=== PATIENT | female | born 1980 | race Caucasian/White ===

== ENCOUNTER 2017-12-17 20:51 | Observation (INO) | payer OTHER ==
--- NOTE | 2017-12-17 21:03 | EDM.PDOC ---
ED HPI GENERAL MEDICAL PROBLEM - General Chief Complaint: General Stated Complaint: Took too much flexeril Time Seen by Provider: 12/17/17 20:52 Source of Information: Reports: Patient, Family, RN, RN Notes Reviewed History Limitations: Reports: No Limitations - History of Present Illness INITIAL COMMENTS - FREE TEXT/NARRATIVE: Patient is brought to the ED at [facility] for an intentional overdose of Cyclobenzaprine. Patient states "I had a bad day" and took 3 tablets of 10 mg flexeril. She has a history of cutting in the past. She is currently taking Celexa 40 mg daily. She has PRN Ativan at home. She has not taken any of this. She does feel safe at home. She states she found out tonight her has been having an affair. They did contact the Poison Control Center who recommended she be seen in the ER due to slow respirations. Onset: Today Onset Date: 12/17/17 - Related Data Allergies Allergy/AdvReac Type Severity Reaction Status Date / Time No Known Allergies Allergy Verified 12/17/17 21:12 Home Meds: Home Meds Citalopram [Citalopram HBr] 20 mg PO DAILY 12/17/17 [History] Levothyroxine [Sythroid] 100 mcg PO DAILY 12/17/17 [History] Lisinopril 20 mg PO DAILY 12/17/17 [History] ED ROS GENERAL - Review of Systems Review Of Systems: See Below Constitutional: Denies: Fever, Chills, Weakness Respiratory: Denies: Shortness of Breath, Cough Cardiovascular: Denies: Chest Pain, Palpitations GI/Abdominal: Denies: Abdominal Pain, Nausea, Vomiting Skin: Reports: No Symptoms Neurological: Reports: Other (feels sleepy) ED EXAM, GENERAL - Physical Exam Exam: See Below Exam Limited By: No Limitations General Appearance: Alert, No Apparent Distress, Other (not really all that overly lethargic, is alert, but tearful) Respiratory/Chest: No Respiratory Distress, Lungs Clear, Normal Breath Sounds Cardiovascular: Normal Peripheral Pulses, Regular Rate, Rhythm Peripheral Pulses: 2+: Radial (L), Radial (R) GI/Abdominal: Normal Bowel Sounds, Soft, Non-Tender Neurological: Alert, Oriented Psychiatric: Depressed Mood, Tearful Skin Exam: Warm, Dry, Intact, Normal Color EKG INTERPRETATION EKG Date: 12/17/17 Time: 21:58 Rhythm: NSR Rate (Beats/Min): 64 [place]: Normal P-Wave: Present QRS: Normal ST-T: Normal QT: Normal MN/PQ Interval: 0.19 Comparison: NA - No Prior EKG EKG Interpretation Comments: 1. Sinus Rhythm 2. Moderate T-wave abnormality, consider inferior ischemia Course - Vital Signs Last Recorded V/S: Last Vital Signs Temp 36.5 C 12/17/17 21:10 Pulse 80 12/17/17 21:10 Resp 20 12/17/17 21:10 BP 135/85 12/17/17 21:10 Pulse Ox 94 L 12/17/17 21:10 - Orders/Labs/Meds Orders: Active Orders 24 hr Category Date Time Status EKG 12 Lead [EKG Documentation Completion] [RC] STAT Care 12/17/17 21:13 Active DRUG SCREEN, URINE [URCHEM] Stat Lab 12/17/17 21:40 Ordered SALICYLATE [REF] Stat Lab 12/17/17 21:34 Received UA W/MICROSCOPIC [URIN] Stat Lab 12/17/17 21:40 Ordered Labs: Laboratory Tests 12/17/17 12/17/17 12/17/17 Range/Units 21:34 21:34 21:40 WBC 7.8 (4.0-10.0) x10^3/uL RBC 4.43 (4.00-5.50) x10^6/uL Hgb 13.4 (12.0-16.0) g/dL Hct 39.0 (33.0-47.0) % MCV 88.0 (78.0-93.0) fL MCH 30.2 (26.0-32.0) pg MCHC 34.4 (32.0-36.0) g/dL RDW Coeff of Raz 14.7 (10.0-15.0) % Plt Count 226 (130-400) x10^3/uL Neut % (Auto) 68.4 (50.0-80.0) % Lymph % (Auto) 23.8 L (25.0-50.0) % [place] % (Auto) 6.7 (2.0-11.0) % Eos % (Auto) 0.8 (0.0-4.0) % Baso % (Auto) 0.3 (0.2-1.2) % Sodium 129 L* (136-145) mmol/L Potassium 3.2 L (3.5-5.1) mmol/L Chloride 94 L (98-107) mmol/L Carbon Dioxide 22 (21-32) mmol/L Anion Gap 16.2 (10-20) mmol/L BUN 5 L (7-18) mg/dL Creatinine 0.7 (0.55-1.02) mg/dL Est Cr Clr Drug Dosing TNP Estimated GFR (MDRD) > 60 Glucose 94 (74-106) mg/dL Calcium 8.2 L (8.5-10.1) mg/dL Corrected Calcium 8.68 (8.5-10.1) mg/dL Total Bilirubin 0.5 (0.2-1.0) mg/dL AST 24 (15-37) U/L ALT 32 (14-59) U/L Alkaline Phosphatase 79 (46-116) U/L Total Protein 7.6 (6.4-8.2) g/dL Albumin 3.4 (3.4-5.0) g/dL Globulin 4.2 Albumin/Globulin Ratio 0.81 Urine Color Yellow (YELLOW) Urine Appearance Clear (CLEAR) Urine pH 6.0 (5.0-8.0) Ur Specific [place] <=1.005 Urine Protein Negative (NEGATIVE) mg/dL Urine Glucose (UA) Negative (NEGATIVE) mg/dL Urine Ketones Negative (NEGATIVE) mg/dL Urine Occult Blood Small H (NEGATIVE) Urine Nitrite Negative (NEGATIVE) Urine Bilirubin Negative (NEGATIVE) Urine Urobilinogen 0.2 (0.2) EU/dL Ur Leukocyte Esterase Negative (NEGATIVE) Urine RBC Not seen (NOT SEEN) /HPF Urine WBC 0-5 (NOT SEEN) /HPF Urine WBC Clumps Rare Urine Bacteria Rare (NEGATIVE) /HPF Urine Mucus Rare H (NEGATIVE) /LPF Urine Opiates Screen (NEGATIVE) Ur Buprenorphine Scrn (NEGATIVE) Ur Oxycodone Screen (NEGATIVE) Urine Methadone Screen (NEGATIVE) Acetaminophen 0 L (10-30) ug/ml Ur Barbiturates Screen (NEGATIVE) Ur Tricyclics Screen (NEGATIVE) Ur Amphetamine Screen (NEGATIVE) U Methamphetamines Scrn (NEGATIVE) Urine MDMA Screen (NEGATIVE) U Benzodiazepines Scrn (NEGATIVE) U Cocaine Metab Screen (NEGATIVE) U Marijuana (THC) Screen (NEGATIVE) 08/22/18 Range/Units 21:40 WBC (4.0-10.0) x10^3/uL RBC (4.00-5.50) x10^6/uL Hgb (12.0-16.0) g/dL Hct (33.0-47.0) % MCV (78.0-93.0) fL MCH (26.0-32.0) pg MCHC (32.0-36.0) g/dL RDW Coeff of Raz (10.0-15.0) % Plt Count (130-400) x10^3/uL Neut % (Auto) (50.0-80.0) % Lymph % (Auto) (25.0-50.0) % [place] % (Auto) (2.0-11.0) % Eos % (Auto) (0.0-4.0) % Baso % (Auto) (0.2-1.2) % Sodium (136-145) mmol/L Potassium (3.5-5.1) mmol/L Chloride (98-107) mmol/L Carbon Dioxide (21-32) mmol/L Anion Gap (10-20) mmol/L BUN (7-18) mg/dL Creatinine (0.55-1.02) mg/dL Est Cr Clr Drug Dosing Estimated GFR (MDRD) Glucose (74-106) mg/dL Calcium (8.5-10.1) mg/dL Corrected Calcium (8.5-10.1) mg/dL Total Bilirubin (0.2-1.0) mg/dL AST (15-37) U/L ALT (14-59) U/L Alkaline Phosphatase (46-116) U/L Total Protein (6.4-8.2) g/dL Albumin (3.4-5.0) g/dL Globulin Albumin/Globulin Ratio Urine Color (YELLOW) Urine Appearance (CLEAR) Urine pH (5.0-8.0) Ur Specific [place] Urine Protein (NEGATIVE) mg/dL Urine Glucose (UA) (NEGATIVE) mg/dL Urine Ketones (NEGATIVE) mg/dL Urine Occult Blood (NEGATIVE) Urine Nitrite (NEGATIVE) Urine Bilirubin (NEGATIVE) Urine Urobilinogen (0.2) EU/dL Ur Leukocyte Esterase (NEGATIVE) Urine RBC (NOT SEEN) /HPF Urine WBC (NOT SEEN) /HPF Urine WBC Clumps Urine Bacteria (NEGATIVE) /HPF Urine Mucus (NEGATIVE) /LPF Urine Opiates Screen Negative (NEGATIVE) Ur Buprenorphine Scrn Negative (NEGATIVE) Ur Oxycodone Screen Negative (NEGATIVE) Urine Methadone Screen Negative (NEGATIVE) Acetaminophen (10-30) ug/ml Ur Barbiturates Screen Negative (NEGATIVE) Ur Tricyclics Screen Negative (NEGATIVE) Ur Amphetamine Screen Negative (NEGATIVE) U Methamphetamines Scrn Negative (NEGATIVE) Urine MDMA Screen Negative (NEGATIVE) U Benzodiazepines Scrn Negative (NEGATIVE) U Cocaine Metab Screen Negative (NEGATIVE) U Marijuana (THC) Screen Negative (NEGATIVE) Departure - Departure Time of Disposition: 22:20 Disposition: Refer to Observation Condition: Good Clinical Impression: Hyponatremia, Mild cyclobenzaprine use disorder, Dehydration - Discharge Information *PRESCRIPTION DRUG MONITORING PROGRAM REVIEWED*: Not Applicable *COPY OF PRESCRIPTION DRUG MONITORING REPORT IN PATIENT HENRI: Not Applicable ED Communication - ED Communication Date/Time Date: 12/17/17 Time Called: :22 - Discussed Case With (1) Discussed Case With (1): Other (Poison Control Center) - Conversation Summary Summary Comment: Poison control center contacted. Spoke with Kim. No recommendations. Peak 4-6 hours. Just monitor. No additional testing recommended - Problem List Review Problem List Initiated/Reviewed/Updated: Yes - My Orders Last 24 Hours: My Active Orders 12/17/17 21:13 EKG 12 Lead [EKG Documentation Completion] [RC] STAT 12/17/17 21:34 SALICYLATE [REF] Stat 12/17/17 21:40 DRUG SCREEN, URINE [URCHEM] Stat UA W/MICROSCOPIC [URIN] Stat - Assessment/Plan Admission H&P: Please use this note as an admission H&P Last 24 Hours: My Active Orders 12/17/17 21:13 EKG 12 Lead [EKG Documentation Completion] [RC] STAT 12/17/17 21:34 SALICYLATE [REF] Stat 12/17/17 21:40 DRUG SCREEN, URINE [URCHEM] Stat UA W/MICROSCOPIC [URIN] Stat Assessment:: Flexeril overdose, intentional Grief reaction Hyponatremia Plan: patient will be admitted for IVF rehydration and monitoring. Patient agrees with admission. Will discharge once Sodium level is normal. Patient will be admitted for less than 24 hours. Will have CM see patient for any APOC or counseling needs.
[2017-12-17 22:01] LABS: CHLORIDE,CL 94 mmol/L (98-107)
[2017-12-17 22:05] LABS: ANION GAP 16.2 mmol/L (10-20); SODIUM,NA 129 mmol/L (136-145)
[2017-12-17 22:14] LABS: ACETAMINOPHEN 0 ug/ml (10-30)
[2017-12-17] MEDS ORDERED: Ondansetron 4 MG Tab.DIS PO PRN (23:18)
[2017-12-17] MEDS ORDERED: Acetaminophen 325 MG Tab PO PRN (23:18)
[2017-12-17] MEDS ORDERED: Sodium Chloride 0.9% 10 ML Syringe FLUSH PRN (23:18)
[2017-12-17] MEDS ORDERED: Sodium Chloride 0.9% 1,000 ML IV ONE ×2 (23:20→23:21)
[2017-12-17] MEDS ORDERED: LORazepam 0.5 MG Tab PO PRN (23:27)
[2017-12-17] MEDS ORDERED: atorvaSTATin 10 MG Tab PO SCH (23:27)
[2017-12-18] MEDS ORDERED: Sodium Chloride 0.9% 10 ML Syringe FLUSH PRN (00:22)
[2017-12-18 07:19] LABS: CHLORIDE,CL 105 mmol/L (98-107); SODIUM,NA 139 mmol/L (136-145)
[2017-12-18 07:21] LABS: ANION GAP 13.9 mmol/L (10-20)
[2017-12-18] MEDS ORDERED: Lisinopril 20 MG Tab PO SCH (08:00)
[2017-12-18] MEDS ORDERED: Citalopram 20 MG Tab PO SCH (08:00)
[2017-12-18] MEDS ORDERED: Levothyroxine 100 MCG Tab PO SCH (08:00)
[2017-12-18] MEDS: Hydrochlorothiazide 12.5 MG Cap PO SCH ×2 (09:07→12:09)
--- NOTE | 2017-12-18 10:24 | PCM.PN ---
- General Info Date of Service: 12/18/17 Admission Dx/Problem (Free Text): Pt. was admitted observation following a cyclobenzaprine overdose. Overall, she states that she is feeling fine. Denies any somnolence. No chest pain or shortness of breath. No nausea, vomiting, or abdominal discomfort. She has not seen health social work professor yet this AM. She denies any suicidal or homicidal ideation, and states that she is not a threat to herself or others. She does take Lexapro which is prescribed by her PCP which she feels is not helping much with her depression. Her depression, again, was exacerbated by marital problems. Functional Status: Reports: Pain Controlled - Review of Systems General: Reports: No Symptoms HEENT: Reports: No Symptoms, Glasses Pulmonary: Reports: No Symptoms Cardiovascular: Reports: No Symptoms Gastrointestinal: Reports: No Symptoms Genitourinary: Reports: No Symptoms Musculoskeletal: Reports: No Symptoms Skin: Reports: No Symptoms Neurological: Reports: No Symptoms Psychiatric: Reports: Other (see HPI) - Patient Data Vitals - Most Recent: Last Vital Signs Temp 37.1 C 12/18/17 06:00 Pulse 93 12/18/17 06:00 Resp 19 12/18/17 06:00 BP 138/84 12/18/17 06:00 Pulse Ox 96 12/18/17 06:00 Weight - Most Recent: 121.336 kg I&O - Last 24 Hours: Intake & Output 12/17/17 12/18/17 12/18/17 22:59 06:59 14:59 Intake Total 720 2935 0 Output Total 1800 Balance 720 1135 0 Lab Results Last 24 Hours: Laboratory Results - last 24 hr 12/17/17 12/17/17 12/17/17 Range/Units 21:34 21:34 21:40 WBC 7.8 (4.0-10.0) x10^3/uL RBC 4.43 (4.00-5.50) x10^6/uL Hgb 13.4 (12.0-16.0) g/dL Hct 39.0 (33.0-47.0) % MCV 88.0 (78.0-93.0) fL MCH 30.2 (26.0-32.0) pg MCHC 34.4 (32.0-36.0) g/dL RDW Coeff of Raz 14.7 (10.0-15.0) % Plt Count 226 (130-400) x10^3/uL Neut % (Auto) 68.4 (50.0-80.0) % Lymph % (Auto) 23.8 L (25.0-50.0) % [place] % (Auto) 6.7 (2.0-11.0) % Eos % (Auto) 0.8 (0.0-4.0) % Baso % (Auto) 0.3 (0.2-1.2) % Sodium 129 L* (136-145) mmol/L Potassium 3.2 L (3.5-5.1) mmol/L Chloride 94 L (98-107) mmol/L Carbon Dioxide 22 (21-32) mmol/L Anion Gap 16.2 (10-20) mmol/L BUN 5 L (7-18) mg/dL Creatinine 0.7 (0.55-1.02) mg/dL Est Cr Clr Drug Dosing TNP Estimated GFR (MDRD) > 60 Glucose 94 (74-106) mg/dL Calcium 8.2 L (8.5-10.1) mg/dL Corrected Calcium 8.68 (8.5-10.1) mg/dL Total Bilirubin 0.5 (0.2-1.0) mg/dL AST 24 (15-37) U/L ALT 32 (14-59) U/L Alkaline Phosphatase 79 (46-116) U/L Total Protein 7.6 (6.4-8.2) g/dL Albumin 3.4 (3.4-5.0) g/dL Globulin 4.2 Albumin/Globulin Ratio 0.81 Urine Color Yellow (YELLOW) Urine Appearance Clear (CLEAR) Urine pH 6.0 (5.0-8.0) Ur Specific [place] <=1.005 Urine Protein Negative (NEGATIVE) mg/dL Urine Glucose (UA) Negative (NEGATIVE) mg/dL Urine Ketones Negative (NEGATIVE) mg/dL Urine Occult Blood Small H (NEGATIVE) Urine Nitrite Negative (NEGATIVE) Urine Bilirubin Negative (NEGATIVE) Urine Urobilinogen 0.2 (0.2) EU/dL Ur Leukocyte Esterase Negative (NEGATIVE) Urine RBC Not seen (NOT SEEN) /HPF Urine WBC 0-5 (NOT SEEN) /HPF Urine WBC Clumps Rare Urine Bacteria Rare (NEGATIVE) /HPF Urine Mucus Rare H (NEGATIVE) /LPF Urine Opiates Screen (NEGATIVE) Ur Buprenorphine Scrn (NEGATIVE) Ur Oxycodone Screen (NEGATIVE) Urine Methadone Screen (NEGATIVE) Acetaminophen 0 L (10-30) ug/ml Ur Barbiturates Screen (NEGATIVE) Ur Tricyclics Screen (NEGATIVE) Ur Amphetamine Screen (NEGATIVE) U Methamphetamines Scrn (NEGATIVE) Urine MDMA Screen (NEGATIVE) U Benzodiazepines Scrn (NEGATIVE) U Cocaine Metab Screen (NEGATIVE) U Marijuana (THC) Screen (NEGATIVE) 12/17/17 12/18/17 Range/Units 21:40 06:43 WBC (4.0-10.0) x10^3/uL RBC (4.00-5.50) x10^6/uL Hgb (12.0-16.0) g/dL Hct (33.0-47.0) % MCV (78.0-93.0) fL MCH (26.0-32.0) pg MCHC (32.0-36.0) g/dL RDW Coeff of Raz (10.0-15.0) % Plt Count (130-400) x10^3/uL Neut % (Auto) (50.0-80.0) % Lymph % (Auto) (25.0-50.0) % [place] % (Auto) (2.0-11.0) % Eos % (Auto) (0.0-4.0) % Baso % (Auto) (0.2-1.2) % Sodium 139 D (136-145) mmol/L Potassium 3.9 (3.5-5.1) mmol/L Chloride 105 (98-107) mmol/L Carbon Dioxide 24 (21-32) mmol/L Anion Gap 13.9 (10-20) mmol/L BUN 6 L (7-18) mg/dL Creatinine 0.9 (0.55-1.02) mg/dL Est Cr Clr Drug Dosing 80.90 Estimated GFR (MDRD) > 60 Glucose 92 (74-106) mg/dL Calcium 8.4 L (8.5-10.1) mg/dL Corrected Calcium (8.5-10.1) mg/dL Total Bilirubin (0.2-1.0) mg/dL AST (15-37) U/L ALT (14-59) U/L Alkaline Phosphatase (46-116) U/L Total Protein (6.4-8.2) g/dL Albumin (3.4-5.0) g/dL Globulin Albumin/Globulin Ratio Urine Color (YELLOW) Urine Appearance (CLEAR) Urine pH (5.0-8.0) Ur Specific [place] Urine Protein (NEGATIVE) mg/dL Urine Glucose (UA) (NEGATIVE) mg/dL Urine Ketones (NEGATIVE) mg/dL Urine Occult Blood (NEGATIVE) Urine Nitrite (NEGATIVE) Urine Bilirubin (NEGATIVE) Urine Urobilinogen (0.2) EU/dL Ur Leukocyte Esterase (NEGATIVE) Urine RBC (NOT SEEN) /HPF Urine WBC (NOT SEEN) /HPF Urine WBC Clumps Urine Bacteria (NEGATIVE) /HPF Urine Mucus (NEGATIVE) /LPF Urine Opiates Screen Negative (NEGATIVE) Ur Buprenorphine Scrn Negative (NEGATIVE) Ur Oxycodone Screen Negative (NEGATIVE) Urine Methadone Screen Negative (NEGATIVE) Acetaminophen (10-30) ug/ml Ur Barbiturates Screen Negative (NEGATIVE) Ur Tricyclics Screen Negative (NEGATIVE) Ur Amphetamine Screen Negative (NEGATIVE) U Methamphetamines Scrn Negative (NEGATIVE) Urine MDMA Screen Negative (NEGATIVE) U Benzodiazepines Scrn Negative (NEGATIVE) U Cocaine Metab Screen Negative (NEGATIVE) U Marijuana (THC) Screen Negative (NEGATIVE) Med Orders - Current: Current Medications Acetaminophen (Tylenol) 650 mg PO Q4H PRN PRN Reason: Pain (Mild 1-3)/fever Atorvastatin Calcium (Lipitor) 10 mg PO BEDTIME [facility] Last Admin: 12/18/17 00:46 Dose: Not Given Citalopram Hydrobromide (Celexa) 40 mg PO DAILY [facility] Last Admin: 12/18/17 08:25 Dose: 40 mg Hydrochlorothiazide (Hydrochlorothiazide) 12.5 mg PO DAILY [facility] Last Admin: 12/18/17 09:07 Dose: Not Given Levothyroxine Sodium (Synthroid) 100 mcg PO DAILY [facility] Last Admin: 12/18/17 08:25 Dose: 100 mcg Lisinopril (Prinivil) 20 mg PO DAILY [facility] Last Admin: 12/18/17 08:26 Dose: 20 mg Lorazepam (Ativan) 0.5 mg PO DAILY PRN PRN Reason: Anxiety Ondansetron HCl (Zofran Odt) 4 mg PO Q6H PRN PRN Reason: nausea, able to take PO Sodium Chloride (Saline Flush) 10 ml FLUSH ASDIRECTED PRN PRN Reason: Keep Vein Open Sodium Chloride (Saline Flush) 10 ml FLUSH ASDIRECTED PRN PRN Reason: Keep Vein Open Discontinued Medications Sodium Chloride (Normal Saline) 1,000 mls @ 999 mls/hr IV ONETIME ONE Stop: 12/18/17 00:20 Last Admin: 12/17/17 23:22 Dose: 999 mls/hr Sodium Chloride (Normal Saline) 1,000 mls @ 999 mls/hr IV ONETIME ONE Stop: 12/18/17 00:21 Last Admin: 12/18/17 00:44 Dose: 999 mls/hr - Exam General: Alert, Oriented Lungs: Clear to Auscultation, Normal Respiratory Effort Cardiovascular: Regular Rate, Regular Rhythm GI/Abdominal Exam: Soft, Non-Tender Back Exam: Normal Inspection, Full Range of Motion Extremities: Normal Inspection, Normal Range of Motion Skin: Warm, Dry, Intact Neurological: No New Focal Deficit Psy/Mental Status: Alert, Normal Affect, Normal Mood - Problem List Review Problem List Initiated/Reviewed/Updated: Yes - Plan Plan:: She will be discharged later today. Again, we need to set her up to see a mental health professional locally, as well as her PCP to discuss her antidepressant medication. Anticipate discharge later today.
--- NOTE | 2017-12-24 05:45 | PCM.DCSUM1 ---
Discharge Summary - Hospital Course HPI Initial Comments: Pt. did well overnight. Denies any lightheadedness. No chest pain or shortness of breath. Denies any acute suicidal ideation. - Discharge Data Discharge Date: 12/18/17 Discharge Disposition: Home, Self-Care 01 Condition: Good - Patient Summary/Data Consults: Consultations 12/17/17 23:18 Consult to Case Management [CONS] Routine - Discharge Plan *PRESCRIPTION DRUG MONITORING PROGRAM REVIEWED*: Not Applicable *COPY OF PRESCRIPTION DRUG MONITORING REPORT IN PATIENT HENRI: Not Applicable Home Medications: Home Meds Citalopram [Citalopram HBr] 40 mg PO DAILY 12/17/17 [History] LORazepam 0.5 mg PO DAILY PRN 12/17/17 [History] Levothyroxine [Synthroid] 100 mcg PO DAILY 12/17/17 [History] Lisinopril/Hydrochlorothiazide [Lisinopril-Hctz 20-12.5 mg Tab] 1 each PO DAILY 12/17/17 [History] atorvaSTATin [Lipitor] 10 mg PO BEDTIME 12/17/17 [History] - General Info Functional Status: Reports: Pain Controlled - Review of Systems General: Reports: No Symptoms HEENT: Reports: No Symptoms Pulmonary: Reports: No Symptoms Cardiovascular: Reports: No Symptoms Gastrointestinal: Reports: No Symptoms Genitourinary: Reports: No Symptoms Musculoskeletal: Reports: No Symptoms Skin: Reports: No Symptoms Neurological: Reports: No Symptoms Psychiatric: Reports: Depression - Patient Data Vitals - Most Recent: Last Vital Signs Temp 36.2 C 12/18/17 10:00 Pulse 74 12/18/17 10:00 Resp 19 12/18/17 06:00 BP 134/78 12/18/17 10:00 Pulse Ox 97 12/18/17 10:00 Weight - Most Recent: 121.336 kg Med Orders - Current: Current Medications Discontinued Medications Acetaminophen (Tylenol) 650 mg PO Q4H PRN PRN Reason: Pain (Mild 1-3)/fever Atorvastatin Calcium (Lipitor) 10 mg PO BEDTIME [facility] Last Admin: 12/18/17 00:46 Dose: Not Given Citalopram Hydrobromide (Celexa) 40 mg PO DAILY [facility] Last Admin: 12/18/17 08:25 Dose: 40 mg Hydrochlorothiazide (Hydrochlorothiazide) 12.5 mg PO DAILY [facility] Last Admin: 12/18/17 12:09 Dose: 12.5 mg Sodium Chloride (Normal Saline) 1,000 mls @ 999 mls/hr IV ONETIME ONE Stop: 12/18/17 00:20 Last Admin: 12/17/17 23:22 Dose: 999 mls/hr Sodium Chloride (Normal Saline) 1,000 mls @ 999 mls/hr IV ONETIME ONE Stop: 12/18/17 00:21 Last Admin: 12/18/17 00:44 Dose: 999 mls/hr Levothyroxine Sodium (Synthroid) 100 mcg PO DAILY [facility] Last Admin: 12/18/17 08:25 Dose: 100 mcg Lisinopril (Prinivil) 20 mg PO DAILY [facility] Last Admin: 12/18/17 08:26 Dose: 20 mg Lorazepam (Ativan) 0.5 mg PO DAILY PRN PRN Reason: Anxiety Ondansetron HCl (Zofran Odt) 4 mg PO Q6H PRN PRN Reason: nausea, able to take PO Sodium Chloride (Saline Flush) 10 ml FLUSH ASDIRECTED PRN PRN Reason: Keep Vein Open Sodium Chloride (Saline Flush) 10 ml FLUSH ASDIRECTED PRN PRN Reason: Keep Vein Open - Exam General: Reports: Alert, Oriented HEENT: Reports: Pupils Equal, Pupils Reactive, EOMI, Mucous Membr. Moist/[place] Neck: Reports: Supple Lungs: Reports: Clear to Auscultation, Normal Respiratory Effort Cardiovascular: Reports: Regular Rate, Regular Rhythm GI/Abdominal Exam: Normal Bowel Sounds, Soft, Non-Tender, No Organomegaly, No Distention, No Abnormal Bruit, No Mass, Pelvis Stable Skin: Reports: Warm, Dry, Intact Neurological: Reports: No New Focal Deficit Psy/Mental Status: Reports: Alert, Normal Affect, Normal Mood
== END 2017-12-18 12:15 | disposition home or self-care (01) ==
LOC: VM.ED 20:51 → VM.MS 22:21
PROVIDERS: ADMIT Nurse Practitioner Family; ATTEND Nurse Practitioner Family
DX: T48.1X2A Poisoning by skeletal muscle relaxants [neuromuscular blocking agents], intentional self-harm, initial encounter (principal); E87.1 Hypo-osmolality and hyponatremia; E86.0 Dehydration
CPT/HCPCS: 36415; 80048; 80053; 80305; 81001; 85025; 93005; 96360; 96361; 99285; A9270; G0378; G0480; J7030

== ENCOUNTER 2018-01-12 10:06 | Emergency (ER) | payer OTHER ==
[2018-01-12] MEDS ORDERED: Sodium Chloride 0.9% 10 ML Syringe FLUSH PRN (10:13)
[2018-01-12] MEDS ORDERED: LORazepam 2 MG/ML SDV IVPUSH ONE (10:14)
[2018-01-12] MEDS ORDERED: Sodium Chloride 0.9% 1,000 ML IV ONE (10:14)
[2018-01-12] MEDS ORDERED: Ondansetron 4 MG/2 ML SDV IVPUSH ONE (10:16)
--- NOTE | 2018-01-12 10:16 | EDM.PDOC ---
ED HPI GENERAL MEDICAL PROBLEM - General Chief Complaint: Cardiovascular Problem Stated Complaint: TACHYCARDIA; SOB Time Seen by Provider: 01/12/18 10:08 Source of Information: Reports: Patient, Old Records, RN, RN Notes Reviewed History Limitations: Reports: No Limitations - History of Present Illness INITIAL COMMENTS - FREE TEXT/NARRATIVE: Patient presents to the ED at [facility] [place] complaining of a fast heart rate and SOB. Patient states she feels very anxious and tearful. Of note, this patient was in this ED a couple of weeks ago for psych treatment after she found out her had an affair. She states her symptoms began around 5:30 this am. She did not do anything for her symptoms until coming into the ER. She does not have a cardiac history. She has been following with her PCP. She states she feels very nauseated and did vomit twice prior to presentation. No diarrhea or abdominal pain. No focal neurological deficits. Onset: Today Onset Date: 01/12/18 Onset Time: 05:30 - Related Data Allergies Allergy/AdvReac Type Severity Reaction Status Date / Time No Known Allergies Allergy Verified 01/12/18 10:49 Home Meds: Home Meds Citalopram [Citalopram HBr] 40 mg PO DAILY 12/17/17 [History] LORazepam 0.5 mg PO DAILY PRN 12/17/17 [History] Levothyroxine [Synthroid] 100 mcg PO DAILY 12/17/17 [History] Lisinopril/Hydrochlorothiazide [Lisinopril-Hctz 20-12.5 mg Tab] 1 each PO DAILY 12/17/17 [History] atorvaSTATin [Lipitor] 10 mg PO BEDTIME 12/17/17 [History] Past Medical History Cardiovascular History: Reports: Hypertension Respiratory History: Reports: Pneumonia, Recurrent POLITICAL AIDE History: Reports: Other (See Below) Other POLITICAL AIDE History: D & C Musculoskeletal History: Reports: Other (See Below) Other Musculoskeletal History: Fractured collarbone when she was 7 yrs old. Psychiatric History: Reports: Anxiety, Depression Endocrine/Metabolic History: Reports: Obesity/BMI 30+ - Past Surgical History Cardiovascular Surgical History: Reports: None GI Surgical History: Reports: None Endocrine Surgical History: Reports: None Musculoskeletal Surgical History: Reports: None Social & Family History - Family History Family Medical History: Noncontributory ED ROS GENERAL - Review of Systems Review Of Systems: See Below Constitutional: Denies: Fever, Chills, Weakness Respiratory: Reports: Shortness of Breath. Denies: Cough Cardiovascular: Reports: Palpitations. Denies: Chest Pain, Dyspnea on Exertion GI/Abdominal: Reports: Nausea, Vomiting. Denies: Abdominal Pain, Diarrhea Skin: Reports: No Symptoms Neurological: Reports: No Symptoms Psychiatric: Reports: Anxiety ED EXAM, GENERAL - Physical Exam Exam: See Below Exam Limited By: No Limitations General Appearance: Alert, No Apparent Distress Respiratory/Chest: No Respiratory Distress, Lungs Clear, Normal Breath Sounds Cardiovascular: Normal Peripheral Pulses, Tachycardia Peripheral Pulses: 2+: Radial (L), Radial (R) GI/Abdominal: Normal Bowel Sounds, Soft, Non-Tender Neurological: Alert, Oriented Psychiatric: Anxious, Tearful Skin Exam: Warm, Dry, Intact, Normal Color EKG INTERPRETATION EKG Date: 01/12/18 Time: 10:35 Rhythm: NSR Rate (Beats/Min): 74 [place]: Normal P-Wave: Present QRS: Normal ST-T: Normal QT: Normal AR/PQ Interval: 0.17 Comparison: NA - No Prior EKG EKG Interpretation Comments: 1. Sinus Rhythm with sinus arrhythmia 2. Nonspecific T-wave abnormality Course - Vital Signs Last Recorded V/S: Last Vital Signs Temp 36.6 C 01/12/18 10:49 Pulse 68 01/12/18 10:49 Resp 24 H 01/12/18 10:49 BP 132/71 01/12/18 10:49 Pulse Ox 95 01/12/18 10:49 - Orders/Labs/Meds Orders: Active Orders 24 hr Category Date Time Status EKG 12 Lead [EKG Documentation Completion] [RC] STAT Care 01/12/18 10:13 Active Chest 2V [CR] Stat Exams 01/12/18 10:13 Taken BASIC METABOLIC PANEL,BMP [CHEM] Stat Lab 01/12/18 10:30 Results CREATINE KINASE,CK [CHEM] Stat Lab 01/12/18 10:30 Results MAGNESIUM [CHEM] Stat Lab 01/12/18 10:30 Results TROPONIN I [CHEM] Stat Lab 01/12/18 10:30 Results Sodium Chloride 0.9% [Saline Flush] Med 01/12/18 10:13 Active 10 ml FLUSH ASDIRECTED PRN Peripheral IV Insertion Adult [OM.PC] Routine Oth 01/12/18 10:13 Ordered Medication Orders Sodium Chloride (Saline Flush) 10 ml FLUSH ASDIRECTED PRN PRN Reason: Keep Vein Open Last Admin: 01/12/18 10:53 Dose: 10 ml Labs: Laboratory Tests 01/12/18 01/12/18 Range/Units 10:30 10:30 WBC 8.3 (4.0-10.0) x10^3/uL RBC 4.74 (4.00-5.50) x10^6/uL Hgb 14.4 (12.0-16.0) g/dL Hct 42.6 (33.0-47.0) % MCV 89.9 (78.0-93.0) fL MCH 30.4 (26.0-32.0) pg MCHC 33.8 (32.0-36.0) g/dL RDW Coeff of Raz 15.0 (10.0-15.0) % Plt Count 293 (130-400) x10^3/uL Neut % (Auto) 80.6 H (50.0-80.0) % Lymph % (Auto) 12.5 L (25.0-50.0) % [place] % (Auto) 6.5 (2.0-11.0) % Eos % (Auto) 0.2 (0.0-4.0) % Baso % (Auto) 0.2 (0.2-1.2) % Sodium 132 L (136-145) mmol/L Potassium 3.9 (3.5-5.1) mmol/L Chloride 100 (98-107) mmol/L Carbon Dioxide 23 (21-32) mmol/L Anion Gap 12.9 (10-20) mmol/L Creatinine 0.8 (0.55-1.02) mg/dL Est Cr Clr Drug Dosing 91.01 mL/min Estimated GFR (MDRD) > 60 Glucose 124 H (74-106) mg/dL Calcium 8.8 (8.5-10.1) mg/dL Magnesium 1.9 (1.8-2.4) mg/dL Creatine Kinase 77 (26-192) U/L Troponin I < 0.017 (<=0.056) ng/mL Meds: Medications Generic Name Dose Route Start Last Admin Trade Name Freq PRN Reason Stop Dose Admin Sodium Chloride 10 ml 01/12/18 10:13 01/12/18 10:53 Saline Flush FLUSH 10 ml ASDIRECTED PRN Administration Keep Vein Open Discontinued Medications Generic Name Dose Route Start Last Admin Trade Name Leslie PRN Reason Stop Dose Admin Sodium Chloride 1,000 mls @ 999 mls/hr 01/12/18 10:14 01/12/18 10:53 Normal Saline IV 01/12/18 11:14 999 mls/hr ONETIME ONE Administration Lorazepam 2 mg 01/12/18 10:14 01/12/18 10:52 Ativan IVPUSH 01/12/18 10:15 2 mg ONETIME ONE Administration Ondansetron HCl 4 mg 01/12/18 10:16 01/12/18 10:48 Zofran IVPUSH 01/12/18 10:17 4 mg ONETIME ONE Administration Departure - Departure Time of Disposition: 12:13 Disposition: Home, Self-Care 01 Reason for Transfer *Q: Other Condition: Good Clinical Impression: JAVIER (generalized anxiety disorder) Instructions: Generalized Anxiety Disorder, Adult Referrals: Sandra Farrell DO [Primary Care Provider] - Forms: ED Department Discharge Additional Instructions: 1. Stay well hydrated and rest 2. Continue with same home medications without changes 3. Follow up with your PCP as symptoms warrant - Problem List Review Problem List Initiated/Reviewed/Updated: Yes - My Orders Last 24 Hours: My Active Orders 01/12/18 10:13 EKG 12 Lead [EKG Documentation Completion] [RC] STAT Chest 2V [CR] Stat Sodium Chloride 0.9% [Saline Flush] 10 ml FLUSH ASDIRECTED PRN Peripheral IV Insertion Adult [OM.PC] Routine 01/12/18 10:30 BASIC METABOLIC PANEL,BMP [CHEM] Stat CREATINE KINASE,CK [CHEM] Stat MAGNESIUM [CHEM] Stat TROPONIN I [CHEM] Stat - Assessment/Plan Last 24 Hours: My Active Orders 01/12/18 10:13 EKG 12 Lead [EKG Documentation Completion] [RC] STAT Chest 2V [CR] Stat Sodium Chloride 0.9% [Saline Flush] 10 ml FLUSH ASDIRECTED PRN Peripheral IV Insertion Adult [OM.PC] Routine 01/12/18 10:30 BASIC METABOLIC PANEL,BMP [CHEM] Stat CREATINE KINASE,CK [CHEM] Stat MAGNESIUM [CHEM] Stat TROPONIN I [CHEM] Stat Assessment:: Acute anxiety Panic attack Plan: Labs, EKG, xray discussed with patient. No acute emergency found. Symptoms relate more to anxiety than cardiac given the patient current marital problems. Patient will be discharged home. No changes with any medications. F/U with PCP as symptoms warrant
[2018-01-12 11:14] LABS: CHLORIDE,CL 100 mmol/L (98-107); SODIUM,NA 132 mmol/L (136-145)
[2018-01-12 11:16] LABS: ANION GAP 12.9 mmol/L (10-20)
== END 2018-01-12 12:35 | disposition home or self-care (01) ==
LOC: VM.ED 10:06
DX: F41.1 Generalized anxiety disorder (principal); I10 Essential (primary) hypertension; F41.9 Anxiety disorder, unspecified; F32.9 Major depressive disorder, single episode, unspecified; Z79.899 Other long term (current) drug therapy; F17.210 Nicotine dependence, cigarettes, uncomplicated
CPT/HCPCS: 36415; 71046; 80048; 82550; 83735; 84484; 85025; 93005; 96365; 96375; 99285; J2060; J2405; J7030; J7050

== ENCOUNTER 2019-07-10 14:39 | Emergency (ER) | payer OTHER ==
--- NOTE | 2019-07-10 14:56 | EDM.PDOC ---
ED HPI GENERAL MEDICAL PROBLEM - General Stated Complaint: Abdominal pain Time Seen by Provider: 07/10/19 14:52 Source of Information: Reports: Patient, RN History Limitations: Reports: No Limitations - History of Present Illness INITIAL COMMENTS - FREE TEXT/NARRATIVE: Pt presents today with c/o mid abdominal pain. This had been a chronic pain for which she had a cholecystectomy about two years ago. She had recurrence of pain 2 weeks after surgery. This is the first episode she has had this since. She had diarrhea yesterday, loose brown stools X 3. This is typical for her. She has not been able to eat, has been nauseous, threw up last night. NO fever. The spasm went away after she woke up this morning and took 2 aleve this am and it went away. Yesterday took ibuprofen and it got worse. She denies fever or chills, radiation of pain which feels like a spasm. She denies that it gets worse with eating; she states it started when she felt she was hungry. She was not able to eat much and eating did not make it better or worse. She has no cough, URI symptoms, chest pain, diaphoresis, muscle ache or pain. She denies constipation. Onset: Sudden Onset Date: 07/09/19 Location: Reports: Abdomen Quality: Reports: Same as Previous Episode, Sharp, Other (spasm) Severity: Severe Improves with: Reports: None Worsens with: Reports: Movement Associated Symptoms: Reports: Loss of Appetite, Malaise, Nausea/Vomiting Treatments MANUSCRIPT EDITOR: Reports: NSAIDS Upper Abdominal Pain Score (Numeric/FACES): 5 - Related Data Allergies Allergy/AdvReac Type Severity Reaction Status Date / Time No Known Allergies Allergy Verified 07/10/19 15:11 Home Meds: Home Meds Citalopram [Citalopram HBr] 40 mg PO DAILY 12/17/17 [History] LORazepam 0.5 mg PO DAILY PRN 12/17/17 [History] Levothyroxine [Synthroid] 100 mcg PO DAILY 12/17/17 [History] Lisinopril/Hydrochlorothiazide [Lisinopril-Hctz 20-12.5 mg Tab] 1 each PO DAILY 12/17/17 [History] atorvaSTATin [Lipitor] 10 mg PO BEDTIME 12/17/17 [History] Past Medical History Cardiovascular History: Reports: Hypertension Respiratory History: Reports: Pneumonia, Recurrent 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 Psychiatric History: Reports: Anxiety, Depression Endocrine/Metabolic History: Reports: Obesity/BMI 30+ - Past Surgical History Cardiovascular Surgical History: Reports: None GI Surgical History: Reports: None Endocrine Surgical History: Reports: None Musculoskeletal Surgical History: Reports: None Social & Family History - Family History Family Medical History: Noncontributory ED ROS GENERAL - Review of Systems Review Of Systems: Comprehensive ROS is negative, except as noted in HPI. Free Text/Narrative/Comment: She is here with c/o abdominal pain. This is midepigastric and is associated with nausea. She has chronic diarrhea which is brown; Pain felt like a spasm and was similar to what she experienced prior to her cholecystectomy. She has been barely able to eat since this started and reports she vomited yesterday. At this time she no longer has the spasm pain but a burning discomfort in midepigastric area. She denies fever or chills. No body aches ED EXAM, GI/ABD - Physical Exam Exam: See Below Exam Limited By: No Limitations General Appearance: Alert, WD/WN Eyes: Bilateral: Normal Appearance Ears: Normal External Exam Nose: Normal Inspection Throat/Mouth: Normal Inspection, Normal Oropharynx, Normal Voice, No Airway Compromise Head: Atraumatic, Normocephalic Neck: Normal Inspection, Supple Respiratory/Chest: No Respiratory Distress, Lungs Clear, Normal Breath Sounds Cardiovascular: Regular Rate, Rhythm GI/Abdominal Exam: Normal Bowel Sounds, Non-Tender, No Organomegaly, No Distention, Tender (tender to palpation of midepigastric area.), Other (Obese with striae) Back Exam: Normal Inspection Neurological: Alert, Oriented, Normal Cognition, Normal Gait Psychiatric: Anxious, Tearful Skin Exam: Warm, Dry, Intact, Normal Color Lymphatic: No Adenopathy Course - Vital Signs Last Recorded V/S: Last Vital Signs Temp 97 F 07/10/19 15:26 Pulse 85 07/10/19 15:26 Resp 14 07/10/19 15:26 BP 123/72 07/10/19 15:26 Pulse Ox 97 07/10/19 15:26 - Orders/Labs/Meds Meds: Medications Discontinued Medications Generic Name Dose Route Start Last Admin Trade Name Leslie PRN Reason Stop Dose Admin Al Hydroxide/Mg Hydroxide 30 ml 07/10/19 15:10 07/10/19 15:13 Gi Cocktail PO 07/10/19 15:11 30 ml ONETIME ONE Administration Departure - Departure Time of Disposition: 15:56 Disposition: Home, Self-Care 01 Condition: Good Clinical Impression: Gastritis Qualifiers: Gastritis type: unspecified gastritis Chronicity: acute Gastritis bleeding: without bleeding Qualified Code(s): K29.00 - Acute gastritis without bleeding - Discharge Information *PRESCRIPTION DRUG MONITORING PROGRAM REVIEWED*: Not Applicable *COPY OF PRESCRIPTION DRUG MONITORING REPORT IN PATIENT HENRI: Not Applicable Instructions: Gastritis, Adult, [id number], Food Choices for Gastroesophageal Reflux Disease, Adult Referrals: Sandra Farrell, [Primary Care Provider] - Forms: ED Department Discharge Additional Instructions: Drink plenty of water. Avoid spicy foods until symptoms resolve Take Metamucil 1 T daily to regulate bowels Follow up with Dr Farrell if not improving Take omeprazole 1 daily on empty Sepsis Event Note - Focused Exam Vital Signs: Vital Signs Temp Pulse Resp BP Pulse Ox 07/10/19 15:26 97 F 85 14 123/72 97 Date Exam was Performed: 07/10/19 Time Exam was Performed: 18:09 - Problem List Review Problem List Initiated/Reviewed/Updated: Yes - Assessment/Plan Assessment:: Gastritis Depression Plan: She was given a GI cocktail with significant improvement. She is given script for omeprazole to take 40 mg po daily for 3 -4 weeks. She is instructed re: GERD precautions She is asked to drink plenty of water. Metamucil 1 T daily to try to regulate bowel as she has alternating constipation with diarrhea. She is to follow up with her PCP Dr. Farrell. She verbalizes understanding. She wants a work note to be off work tomorrow. She was provided one.
[2019-07-10] MEDS ORDERED: GI Cocktail Oral Solution 30 ML PO ONE (15:10)
== END 2019-07-10 15:56 | disposition home or self-care (01) ==
LOC: VM.ED 14:39
DX: K29.00 Acute gastritis without bleeding (principal); F32.9 Major depressive disorder, single episode, unspecified; I10 Essential (primary) hypertension; F41.9 Anxiety disorder, unspecified; E66.9 Obesity, unspecified; Z68.41 Body mass index [BMI] 40.0-44.9, adult; Z79.899 Other long term (current) drug therapy
CPT/HCPCS: 99283; A9270

== ENCOUNTER 2021-02-02 08:44 | Emergency (ER) | payer OTHER ==
--- NOTE | 2021-02-02 08:53 | EDM.PDOC ---
ED HPI GENERAL MEDICAL PROBLEM - General Chief Complaint: General Stated Complaint: HIP PAIN Time Seen by Provider: 02/02/21 08:50 Source of Information: Reports: Patient History Limitations: Reports: No Limitations - History of Present Illness INITIAL COMMENTS - FREE TEXT/NARRATIVE: Comes in the emergency department complaint of right hip discomfort. Patient states that her right hip started hurting 2 days ago when she turned in her bed a specific direction. She states that sharp shooting sensation at the lower right lumbar region radiating down the backside of her thigh into the knee region. She describes it as sharp shooting sensation. Patient states that she has had this happen in the past and has been able to utilize [id number] medications for relief however it has not worked at this time. Patient states that she does have some numbness and tingling in that right lower extremity due to the pain and discomfort. She states that she is unable to find a position of comfort. She states that she did take Aleve last night however she has ran out of any further medication and does not have anymore. Onset: Sudden Duration: Constant Location: Reports: Pelvis Quality: Reports: Other Severity: Moderate Improves with: Reports: Rest Worsens with: Reports: Movement Context: Reports: Activity Associated Symptoms: Reports: No Other Symptoms Right Hip Pain Score (Numeric/FACES): 8 - Related Data Allergies Allergy/AdvReac Type Severity Reaction Status Date / Time No Known Allergies Allergy Verified 07/10/19 15:11 Home Meds: Home Meds Citalopram [Citalopram HBr] 40 mg PO DAILY 12/17/17 [History] LORazepam 0.5 mg PO DAILY PRN 12/17/17 [History] Levothyroxine [Synthroid] 100 mcg PO DAILY 12/17/17 [History] Lisinopril/Hydrochlorothiazide [Lisinopril-Hctz 20-12.5 mg Tab] 1 each PO DAILY 12/17/17 [History] atorvaSTATin [Lipitor] 10 mg PO BEDTIME 12/17/17 [History] Cyclobenzaprine [Flexeril] 20 mg PO DAILY PRN #15 tab 02/02/21 [Rx] predniSONE 20 mg PO WITHBREAKFAST 5 Days #5 tab 02/02/21 [Rx] Past Medical History Cardiovascular History: Reports: Hypertension Respiratory History: Reports: Pneumonia, Recurrent Gastrointestinal History: Reports: Other (See Below) Other Gastrointestinal History: Right Upper Quadrant Pain 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 Psychiatric History: Reports: Anxiety, Depression Endocrine/Metabolic History: Reports: Obesity/BMI 30+ - Past Surgical History Cardiovascular Surgical History: Reports: None GI Surgical History: Reports: None Endocrine Surgical History: Reports: None Musculoskeletal Surgical History: Reports: None Social & Family History - Family History Family Medical History: No Pertinent Family History ED ROS GENERAL - Review of Systems Review Of Systems: Comprehensive ROS is negative, except as noted in HPI. Constitutional: Reports: No Symptoms HEENT: Reports: No Symptoms Respiratory: Reports: No Symptoms Cardiovascular: Reports: No Symptoms Endocrine: Reports: No Symptoms GI/Abdominal: Reports: No Symptoms : Reports: No Symptoms Musculoskeletal: Reports: Muscle Pain, Muscle Stiffness Skin: Reports: No Symptoms Neurological: Reports: No Symptoms Psychiatric: Reports: No Symptoms Hematologic/Lymphatic: Reports: No Symptoms Immunologic: Reports: No Symptoms ED EXAM, GENERAL - Physical Exam Exam: See Below Exam Limited By: No Limitations General Appearance: Alert, WD/WN, No Apparent Distress Head: Atraumatic, Normocephalic Neck: Normal Inspection, Supple, Non-Tender, Full Range of Motion Back Exam: Normal Inspection, Full Range of Motion Extremities: Normal Inspection, Normal Range of Motion, Non-Tender, No Pedal Edema, Normal Capillary Refill Neurological: Alert, Oriented, CN II-XII Intact, Normal Cognition, Normal Gait Psychiatric: Normal Affect, Normal Mood Skin Exam: Warm, Dry, Intact, Normal Color Course - Vital Signs Last Recorded V/S: Last Vital Signs Temp 36.3 C 02/02/21 08:54 Pulse 80 02/02/21 10:20 Resp 16 02/02/21 10:20 BP 137/86 02/02/21 10:20 Pulse Ox 98 02/02/21 10:20 - Orders/Labs/Meds Meds: Medications Discontinued Medications Generic Name Dose Route Start Last Admin Trade Name Freq PRN Reason Stop Dose Admin Ketorolac Tromethamine 30 mg 02/02/21 09:04 02/02/21 09:36 Ketorolac 30 Mg/Ml Sdv IM 02/02/21 09:05 30 mg ONETIME ONE Administration Methylprednisolone Sodium Succinate 125 mg 02/02/21 09:04 02/02/21 09:44 Methylprednisolone Sodium Succinate 125 Mg/2 Ml Sdv IM 02/02/21 09:05 125 mg ONETIME ONE Administration Orphenadrine Citrate 60 mg 02/02/21 09:04 02/02/21 09:40 Orphenadrine 60 Mg/2 Ml Inj IM 02/02/21 09:05 60 mg ONETIME ONE Administration Departure - Departure Time of Disposition: 09:40 Disposition: Home, Self-Care 01 Condition: Good Clinical Impression: Sciatic leg pain - Discharge Information *PRESCRIPTION DRUG MONITORING PROGRAM REVIEWED*: Not Applicable *COPY OF PRESCRIPTION DRUG MONITORING REPORT IN PATIENT HENRI: Not Applicable Prescriptions: Cyclobenzaprine [Flexeril] 20 mg PO DAILY PRN #15 tab PRN Reason: Pain predniSONE 20 mg PO WITHBREAKFAST 5 Days #5 tab Instructions: Sciatica, [id number] Referrals: Sandra Farrell DO [Primary Care Provider] - Forms: ED Department Discharge, ED Return to Work/School Form Additional Instructions: 1. rest 2. Can take Flexeril as needed 3. Prednisone 20mg daily for 5 days 4. Continue all at home medications 5. Activity and diet as tolerated 6. Can take over the counter Tylenol for any pain or discomfort 7. use ice or heat for 20 minutes at a time 3-4 times a day 8. Follow up with PCP if symptoms continue, return, or progress 9. Call with any questions or concerns Sepsis Event Note (ED) - Focused Exam Vital Signs: Vital Signs Temp Pulse Resp BP Pulse Ox 02/02/21 10:20 80 16 137/86 98 02/02/21 08:54 36.3 C 106 H 16 133/92 H 97 - Assessment/Plan Assessment:: 1. right hip pain 2. Sciatica Plan: 1. Ice Applied to the affected area 2. Medication offered to the patient- Toradol, Solumedrol and norflex given IM in er 3. Education regarding splinting, activity, [id number] medications, and follow-up care provided. 4. All questions and concerns addressed with the patient prior to discharge
[2021-02-02] MEDS: Ketorolac 30 MG/ML SDV IM ONE (09:36)
[2021-02-02] MEDS: Orphenadrine 60 MG/2 ML Inj IM ONE (09:40)
[2021-02-02] MEDS: methylPREDNISolone Sodium Succinate 125 MG/2 ML SDV IM ONE (09:44)
== END 2021-02-02 10:20 | disposition home or self-care (01) ==
LOC: VM.ED 08:44
DX: M54.41 Lumbago with sciatica, right side (principal); I10 Essential (primary) hypertension; E66.9 Obesity, unspecified; Z79.899 Other long term (current) drug therapy; Z68.41 Body mass index [BMI] 40.0-44.9, adult
CPT/HCPCS: 96372; 99283; J1885; J2360; J2930

== ENCOUNTER 2021-09-08 11:17 | Emergency (ER) | payer OTHER | END 2021-09-08 11:55 | disposition home or self-care (01) | LOC: VM.ED 11:17 | DX: K59.00 Constipation, unspecified (principal); K64.9 Unspecified hemorrhoids; K21.9 Gastro-esophageal reflux disease without esophagitis; E78.00 Pure hypercholesterolemia, unspecified; I10 Essential (primary) hypertension; E66.9 Obesity, unspecified; Z68.30 Body mass index [BMI] 30.0-30.9, adult; Z79.899 Other long term (current) drug therapy | CPT/HCPCS: 99283; 99284 ==